=== PATIENT | female | born 1965 | race Two or more races ===

== ENCOUNTER 2020-08-29 08:57 | Day surgery (SDC) | payer OTHER ==
[~2020-08-29 08:57] MED LIST: FLOVENT 110MCG7.9 GM IH; MOTRIN800 MG PO; PROVENTIL3 ML/2.5 M IH; ZITHROMAX500 MG PO; ZYNCOF 20-400120 ML PO
== END 2020-08-29 12:10 | disposition home or self-care (01) ==
LOC: AMB-ENDOS 08:57
PROVIDERS: ATTEND Surgery
DX: K63.5 Polyp of colon (principal); Z20.828 Contact with and (suspected) exposure to other viral communicable diseases

== ENCOUNTER 2020-09-26 12:13 | Emergency (ER) | payer OTHER ==
[~2020-09-26] VITALS: Ht 157.5 cm; Wt 56.7 kg
[2020-09-26] MEDS ORDERED: IPRAT-ALBUT 0.5-3 ML IH (19:19)
[2020-09-26] MEDS ORDERED: MEDROLPACK PO (19:19)
== END 2020-09-26 20:07 | disposition home or self-care (01) ==
LOC: ER 12:13
DX: J44.1 Chronic obstructive pulmonary disease with (acute) exacerbation (principal); Z03.818 Encounter for observation for suspected exposure to other biological agents ruled out; R06.02 Shortness of breath

== ENCOUNTER → 2021-05-27 | Emergency (ER) | payer OTHER ==
[~2021-05-27] VITALS: Ht 157.5 cm; Wt 54.4 kg
[~2021-05-27] MED LIST changes: +CIPRO500 MG; +FLAGYL500MG; +IPRAT-ALBUT 0.5-3 ML IH; +MEDROLPACK PO
== END | disposition left against medical advice (07) ==
LOC: ER 22:35
DX: Z53.21 Procedure and treatment not carried out due to patient leaving prior to being seen by health care provider (principal)

== ENCOUNTER 2022-05-23 14:01 | Emergency (ER) | payer OTHER ==
[~2022-05-23] VITALS: Ht 154.9 cm; Wt 52.2 kg
== END 2022-05-24 09:20 | disposition home or self-care (01) ==
LOC: ER 14:01
DX: K57.32 Diverticulitis of large intestine without perforation or abscess without bleeding (principal)